=== PATIENT | female | born 1995 | race Caucasian/White ===

== ENCOUNTER 2016-10-10 21:54 | Emergency (ER) | payer BC ==
[~2016-10-10 21:54] MED LIST: CLINORIL PO; NO MEDICATIONS; PRILOSEC PO
== END 2016-10-11 00:13 | disposition home or self-care (01) ==
LOC: SED 21:54
DX: R51 Headache (principal); Z87.442 Personal history of urinary calculi
CPT/HCPCS: 96361; 96374; 96375; 99283; J0780; J1200; J1885; J2405; J2765